=== PATIENT | female | born 1990 | race Two or more races ===

== ENCOUNTER 2021-10-25 18:14 | Emergency (ER) | payer MEDICARE ==
[~2021-10-25] VITALS: Ht 157.5 cm; Wt 99.5 kg
[2021-10-25] MEDS ORDERED: ONDANSETRON ODT4 MG PO (19:16)
[2021-10-25] MEDS ORDERED: CEFDINIR300 MG PO (19:16)
[2021-10-25] MEDS ORDERED: ACETAMINOPHEN500 MG PO (19:16)
== END 2021-10-25 19:35 | disposition home or self-care (01) ==
LOC: FSED 18:39
DX: O23.40 Unspecified infection of urinary tract in pregnancy, unspecified trimester (principal); R30.0 Dysuria; R10.30 Lower abdominal pain, unspecified
CPT/HCPCS: 81003; 81025; 99283

== ENCOUNTER 2021-12-29 16:30 | Emergency (ER) | payer MEDICAID, MEDICARE, OTHER ==
[~2021-12-29] VITALS: Ht 157.5 cm; Wt 105.7 kg
[~2021-12-29 16:30] MED LIST: ACETAMINOPHEN500 MG PO; CEFDINIR300 MG PO; ONDANSETRON ODT4 MG PO
[2021-12-29] MEDS ORDERED: CEPHALEXIN500 MG PO (19:52)
== END 2021-12-29 21:00 | disposition home or self-care (01) ==
LOC: FSED 16:37
DX: O02.1 Missed abortion (principal)
CPT/HCPCS: 76801; 99283